=== PATIENT | female | born 1985 ===

== ENCOUNTER 2019-01-26 19:46 | Inpatient (IN) | payer OTHER ==
[2019-01-26] MEDS ORDERED: BRETHINE SUB-Q PRN (21:29)
[2019-01-26] MEDS ORDERED: STADOL IV PRN (21:29)
[2019-01-26] MEDS ORDERED: BRETHINE IVP PRN (21:29)
[2019-01-26] MEDS ORDERED: SUBLIMAZE IV PRN (21:29)
[2019-01-26] MEDS ORDERED: XYLOCAINE 2% INFILTRATI ONE (21:29)
[2019-01-26] MEDS ORDERED: MINERAL OIL PO PRN (21:29)
[2019-01-26] MEDS ORDERED: AMPICILLIN/NS 2 GM/100 ML 2 GM/100 ML BAG IV ONE (21:29)
[2019-01-26] MEDS ORDERED: LACTATED RINGERS 1,000 ML ONE (21:31)
[2019-01-26] MEDS ORDERED: PITOCin/NS 20 UNIT/1000ML DRIP 20 UNITS/1,000 ML BAG IV SCH (22:00)
[2019-01-26] MEDS ORDERED: LACTATED RINGERS 1,000 ML IV SCH (22:00)
--- NOTE | 2019-01-26 22:06 | History and Physical Report ---
History of Present Illness Date of examination: 01/26/19 Date of admission: 01/26/2019 Chief complaint: leakage of fluid History of present illness: 33y/o @ 38+6 weeks presents with gross rupture of membranes of clear fluid. The patient is transfer of care @ 31 weeks from [place]. course complicated by +GBS otherwise uncomplicated. Past History Past Medical History: no pertinent history Past Surgical History: no surgical history Social history: - Obstetrical History Expected Date of Delivery: 02/03/19 Actual Gestation: 38 Week(s) 6 Day(s) : 1 Para: 0 Hx # Term Pregnancies: 0 Number of Pregnancies: 0 Spontaneous Abortions: 0 Induced : 0 Number of Living Children: 0 Medications and Allergies Allergies Allergy/AdvReac Type Severity Reaction Status Date / Time No Known Allergies Allergy Verified 01/26/19 20:23 Home Medications Medication Instructions Recorded Confirmed Last Taken Type Vit-Fe Fumar-FA [ 1 tab PO DAILY 01/26/19 01/26/19 01/26/19 History Vitamin] Active Meds: Active Medications Butorphanol Tartrate (Stadol) 2 mg IV Q2H PRN PRN Reason: Pain , Severe (7-10) Ephedrine Sulfate (Ephedrine Sulfate) 10 mg IV Q2M PRN PRN Reason: Hypotension Fentanyl (Sublimaze) 100 mcg IV Q2H PRN PRN Reason: Labor Pain Oxytocin/Sodium Chloride (Pitocin/Ns 20 Unit/1000ml Drip) 20 units in 1,000 mls @ 125 mls/hr IV DIRECT BETSEY Lactated Ringer's (Lactated Ringers) 1,000 mls @ 125 mls/hr IV DIRECT BETSEY Last Admin: 01/26/19 21:46 Dose: 125 mls/hr Documented by: Ampicillin Sodium (Ampicillin/Ns 2 Gm/100 Ml) 2 gm in 100 mls @ 100 mls/hr IV ONCE ONE; Protocol Stop: 01/26/19 22:28 Ampicillin Sodium (Ampicillin/Ns 1 Gm/50 Ml) 1 gm in 50 mls @ 100 mls/hr IV Q4HR BETSEY; Protocol Mineral Oil (Mineral Oil) 30 ml PO QHS PRN PRN Reason: Constipation Terbutaline Sulfate (Brethine) 0.25 mg SUB-Q ONCE PRN PRN Reason: Hyperstimulation/Hypertonicity Terbutaline Sulfate (Brethine) 0.25 mg IVP ONCE PRN PRN Reason: Hyperstimulation/Hypertonicity Review of Systems All systems: negative Genitourinary: leakage of fluid - Vital Signs Vital signs: Vital Signs Pulse BP 74 117/63 01/26/19 20:02 01/26/19 20:02 Temp Pulse Resp BP Pulse Ox 98.9 F 68 18 115/69 01/26/19 20:13 01/26/19 21:33 01/26/19 20:13 01/26/19 21:33 - Physical Exam Breasts: Positive: deferred Cardiovascular: Regular rate Lungs: Positive: Clear to auscultation Abdomen: Positive: normal appearance - Obstetrical Cervical Dilatation: 1 Results Result Diagrams: 01/26/19 21:39 All other labs normal. Assessment and Plan - Patient Problems (1) Spontaneous rupture of membranes Current Visit: Yes Status: Acute Plan to address problem: admit for augmentation and IV antibiotics
[2019-01-26 22:25] LABS: Hemoglobin 12.8 gm/dl (10.1-14.3); Red Blood Count 3.82 M/mm3 (3.65-5.03)
[2019-01-26 22:26] LABS: Hematocrit 37.4 % (30.3-42.9); Mean Corpuscular HGB Conc 34 % (30-34); Mean Corpuscular Volume 98 fl (79-97); Platelet Count 167 K/mm3 (140-440); Red Cell Distribution Width 13.5 % (13.2-15.2)
[2019-01-26] MEDS ORDERED: PITOCin/NS 30 UNIT/500ML 30,000 MILLIUNITS/500 ML BAG IV ONE (22:40)
[2019-01-27] MEDS: AMPICILLIN/NS 1 GM/50 ML 1 GM/50 ML BAG IV SCH ×2 (01:33→06:00)
--- NOTE | 2019-01-27 08:47 | Anesthesia Consultation ---
Anesthesia Consult and Med Hx Date of service: 01/27/19 - Airway Anesthetic Teeth Evaluation: Good ROM Head & Neck: Adequate Mental/Hyoid Distance: Adequate Mallampati Class: Class II Intubation Access Assessment: Probably Good - Pulmonary Exam CTA: Yes - Cardiac Exam Cardiac Exam: RRR - Pre-Operative Health Status ASA Pre-Surgery Classification: ASA2 Proposed Anesthetic Plan: Epidural - Pulmonary Hx Smoking: No Hx Asthma: No Hx Respiratory Symptoms: No SOB: No COPD: No Home Oxygen Therapy: No Hx Pneumonia: No Hx Sleep Apnea: No - Cardiovascular System Hx Hypertension: No Hx Coronary Artery Disease: No Hx Heart Attack/AMI: No Hx Angina: No Hx Percutaneous Transluminal Coronary Angioplasty (PTCA): No Hx Cardia Arrhythmia: No Hx Pacemaker: No Hx Internal Defibrillator: No Hx Valvular Heart Disease: No Hx Heart Murmur: No Hx Peripheral Vascular Disease: No - Central Nervous System Hx Neuromuscular Disorder: No Hx Seizures: No CVA: No Hx Back Pain: No Hx Psychiatric Problems: No - Gastrointestinal Hx Ulcer: No Hx Gastroesophageal Reflux Disease: Yes - Endocrine Hx Renal Disease: No Hx End Stage Renal Disease: No Hx Cirrhosis: No Hx Liver Disease: No Hx Insulin Dependent Diabetes: No Hx Non-Insulin Dependent Diabetes: No Hx Thyroid Disease: No Hx Hypothyroidism: No Hx Hyperthyroidism: No - Hematic Hx Anemia: No Hx Sickle Cell Disease: No - Other Systems Hx Alcohol Use: No Hx Substance Use: No Hx Cancer: No Hx Obesity: No
[2019-01-27] MEDS ORDERED: NARCAN 2 MG/2 ML IV PRN (09:00)
[2019-01-27] MEDS ORDERED: fentaNYL-BUPIV 2 MCG/ML-0.125% 200 MCG/100 ML BAG EPIDURAL SCH (09:30)
[2019-01-27] MEDS ORDERED: MARCAINE 0.25% INFILTRATI ONE (10:19)
--- NOTE | 2019-01-27 10:32 | Event Note ---
Date: 01/27/19 Called by pt's RN secondary to repetitive deep variable decelerations with each contraction. Pt examined and found to be /0. Pt had prior attempt at pushing that was unsuccessful. Plan to proceed with delivery.
[2019-01-27] MEDS ORDERED: DIPRIVAN 10 MG/ML IV ONE (10:35)
[2019-01-27] MEDS ORDERED: NACL 0.9% IR ONE (10:39)
[2019-01-27] MEDS ORDERED: WATER FOR IRRIG STERILE IR ONE (10:39)
[2019-01-27] MEDS ORDERED: ceFAZolin 2 GM in NACL 0.9% 100 ML IV ONE (10:44)
[2019-01-27] MEDS ORDERED: ANCEF/STERILE WATER 2 GM/20 ML 2 GM/20 ML SYRINGE IV ONE ×2 (10:44→10:50)
[2019-01-27] MEDS ORDERED: ZOFRAN ONE (10:55)
[2019-01-27] MEDS ORDERED: REGLAN IV NR (11:00)
[2019-01-27] MEDS ORDERED: PEPCID IV NR (11:00)
[2019-01-27] MEDS ORDERED: BICITRA PO NR (11:00)
[2019-01-27] MEDS ORDERED: PITOCin/NS 20 UNIT/1000ML DRIP 20 UNITS/1,000 ML BAG IV SCH ×2 (11:00→14:30)
[2019-01-27] MEDS ORDERED: LACTATED RINGERS 1,000 ML IV SCH (11:00)
--- NOTE | 2019-01-27 12:04 | Anesthesia Day of Surgery ---
Anesthesia Day of Surgery - Day of Surgery Patient Examined: Yes Patient H&P Reviewed: Yes Patient is NPO: Yes Beta Blockers: No Cardiac Clearance: No Pulmonary Clearance: No Tutu's Test: N/A
[2019-01-27] MEDS ORDERED: ZOFRAN IV PRN ×2 (12:05→14:30)
[2019-01-27] MEDS ORDERED: BENADRYL IV PRN (12:05)
[2019-01-27] MEDS ORDERED: DILAUDID IV PRN (12:05)
[2019-01-27] MEDS ORDERED: NARCAN 0.4 MG/1 ML IV PRN ×2 (12:05→14:30)
--- NOTE | 2019-01-27 12:05 | Post Anesthesia Evaluation ---
- Post Anesthesia Evaluation Patient Participated: Yes Airway Patent: Yes Stable Respiratory Function: Yes Nausea/Vomiting: No Temp > 96.8F: Yes Pain Manageable: Yes Adequeate Hydration: Yes Anesthesia Complications: No Block Receding Appropriately: Yes Patient on Ventilator: No
--- NOTE | 2019-01-27 12:09 | Operative Report ---
Operative Report Operative Report: Date of procedure: January Preoperative diagnosis: 1) IUP at 39w0d 2)SROM 3) Nonreassuring heart t ones Postoperative diagnosis: Same Procedure:Primary low transverse section Surgeon: Salma Wang M.D. Anesthesia: Regional Findings: 1) Viable female , Apgars 8 and 9, weight 2845g, (6 lb 4 oz) in cephalic presentation. Tight nuchal cord x 1 2) Normal-appearing uterus ovaries and tubes Estimated blood loss: 500 mL IV fluids:1200 mL Urine output: 300 mL, clear at the end of the procedure Drains: Rausch to gravity Specimens: Placenta Complications:None.Counts correct x 3 Disposition: Stable to PACU Indication for procedure: Pt is a 33 year old [place] female primigravida at 39w0 who was admitted with rupture of membranes.She progressed to 9 cm but began to have repetitive deep variable decelerations with each contraction without any further descent of the fetus. The decision was to proceed with delivery. Operation in detail: After the risks, benefits, alternatives and complications were explained to the patient she gave informed consent for the procedure. She was subsequently taken to the operating room where regional anesthesia was noted to be adequate. She was subsequently placed in the dorsal supine position with leftward tilt and prepped and draped in a normal sterile fashion. heart tones were noted to be in the 180s prior to incision. A timeout was performed. A Pfannenstiel skin incision was made with the knife and carried down to the layer of the fascia with the Bovie. The fascia was incised in the midline and the fascial incision was extended bilaterally with the Bovie. The fascial incision was then stretched. The rectus muscles were then in the midline. The peritoneum was then entered bluntly. The peritoneal incision was extended with good visualization of the bladder. The peritoneal incision was then stretched. The bladder blade was placed. The vesicouterine peritoneum was grasped with smooth pickups and incised with Metzenbaum scissors. Metzenbaum scissors were used to extend the incision bilaterally. The bladder flap was then created digitally and the bladder blade was replaced. A transverse incision was made in the lower uterine segment with a knife and extended bilaterally with the bandage scissors. The head was delivered without difficulty followed by shoulders and body. Tight nuchal cord was reduced. was bulb suctioned at delivery. The cord was clamped and cut and the was handed to NICU staff in attendance. Cord blood was collected. The placenta was then delivered manually. The uterus was then cleared of all clots and debris. The hysterotomy was then reapproximated with 0 Vicryl in a running locked fashion. A second layer of the same suture was used in imbricating fashion. The hysterotomy was inspected and hemostasis was noted. The gutters were irrigated and cleared of all clots and debris. The hysterotomy was again inspected and noted to be hemostatic. Surgicel was placed over the hysterotomy. The peritoneum was reapproximated with 2-0 Vicryl in a running fashion incorporating the rectus muscles. The fascia was reapproximated with 0 Vicryl in a running fashion. Additional figure of eights of 0Vicryl were used on the right side of the incision for full reapproximation. The subcutaneous tissue was reapproximated with 3-0 Vicryl in a running fashion. The skin was reapproximated with 4-0 Vicryl in a subcuticular fashion. The incision was then covered with steri strips and a pressure dressing. The procedure was then ended. The patient tolerated the procedure well and was taken to the PACU in stable condition. All instrument, lap, and needle counts were correct 3.
--- NOTE | 2019-01-27 12:09 | Procedure Note ---
OB Delivery Note - Delivery Date of Delivery: 01/27/19 Surgeon: BUDDY TAYLOR Estimated blood loss: 500cc - Section Preop diagnosis: nonreassuring FHR tracing Postop diagnosis: same section procedure: section, primary low transverse Disposition: PACU Complications: none Narrative: Please see operative report - A at 1 minute: 8 at 5 minutes: 9 Infant Gender: Female (2845g (6lb 4oz) @ 1045 am)
[2019-01-27] MEDS ORDERED: SODIUM CHLORIDE FLUSH SYRINGE 10 ML IV NR (13:00)
[2019-01-27] MEDS ORDERED: TUCKS PAD TP PRN (14:30)
[2019-01-27] MEDS ORDERED: D5LR 1,000 ML IV SCH (14:30)
[2019-01-27] MEDS ORDERED: SODIUM CHLORIDE FLUSH SYRINGE 10 ML IV PRN (14:30)
[2019-01-27] MEDS ORDERED: TYLENOL PO PRN (14:30)
[2019-01-27] MEDS ORDERED: MYLICON PO PRN (14:30)
[2019-01-27] MEDS ORDERED: LANSINOH TP PRN (14:30)
[2019-01-27] MEDS: DILAUDID IV PRN ×2 (15:02→15:11)
[2019-01-27] MEDS: TORADOL IV SCH ×2 (15:05→21:44)
[2019-01-27] MEDS ORDERED: MILK OF MAGNESIA PO PRN (22:00)
[2019-01-27] MEDS: PERCOCET 5/325 PO PRN (22:04)
[2019-01-27] MEDS: ANCEF/NS 1 GM/50 ML 1 GM/50 ML BAG IV SCH (22:15)
[2019-01-28 01:37] LABS: Hematocrit 30.4 % (30.3-42.9); Hemoglobin 10.7 gm/dl (10.1-14.3)
[2019-01-28] MEDS: TORADOL IV SCH ×2 (03:23→10:00)
[2019-01-28] MEDS: PERCOCET 5/325 PO PRN ×3 (03:24→15:51)
[2019-01-28] MEDS ORDERED: BOOSTRIX IM ONE (06:00)
--- NOTE | 2019-01-28 08:10 | Progress Note ---
Assessment and Plan A: POD#1 s/p primary section at term doing well P: Routine postoperative care Subjective - Subjective Date of service: 01/28/19 Principal diagnosis: s/p primary at term Interval history: No issues overnight Patient reports: appetite normal, voiding normally, pain well controlled, ambulating normally, no flatus, no bowel movement : doing well Objective - Vital Signs Latest vital signs: Vital Signs Temp Pulse Resp BP BP BP Pulse Ox 01/28/19 00:00 98.7 F 72 18 97/60 96 01/27/19 20:02 98.4 F 73 18 105/62 97 01/27/19 16:20 98.8 F 70 70 H 105/59 01/27/19 14:06 97.9 F 87 100 H 99/63 01/27/19 13:00 97.8 F 100 H 17 107/66 100 01/27/19 12:45 104 H 18 104/65 100 01/27/19 12:30 66 18 102/56 100 01/27/19 12:15 76 16 97/53 100 01/27/19 12:00 72 14 99/57 100 01/27/19 11:55 71 19 97/55 100 01/27/19 11:50 97.5 F L 88 19 101/57 100 01/27/19 10:27 93 H 129/69 01/27/19 10:21 117 H 100 01/27/19 10:17 89 119/64 01/27/19 10:16 95 H 100 01/27/19 10:11 81 109/64 98 01/27/19 10:06 80 99 01/27/19 10:01 76 97 01/27/19 09:58 73 105/62 01/27/19 09:56 77 100 01/27/19 09:51 81 100 01/27/19 09:46 85 99 01/27/19 09:42 78 103/50 01/27/19 09:41 74 99 01/27/19 09:36 76 100 01/27/19 09:31 91 H 100 01/27/19 09:27 75 102/55 01/27/19 09:26 76 99 01/27/19 09:21 83 99 01/27/19 09:16 86 99 01/27/19 09:11 75 102/57 100 01/27/19 09:06 76 100 08/07/19 09:01 86 99 01/27/19 08:56 73 99/56 100 01/27/19 08:53 75 94/50 01/27/19 08:51 71 100 01/27/19 08:46 79 103/52 01/27/19 08:43 77 96/48 01/27/19 08:42 77 98/50 01/27/19 08:41 83 123/74 01/27/19 08:39 89 131/61 01/27/19 08:36 75 92/51 01/27/19 08:35 79 94 01/27/19 08:34 103 H 98/56 01/27/19 08:32 97 H 104/53 01/27/19 08:31 95 H 97 01/27/19 08:29 88 116/51 01/27/19 08:26 94 H 97 01/27/19 08:25 72 110/54 01/27/19 08:24 97 H 113/55 01/27/19 08:23 86 113/56 01/27/19 08:21 109 H 97 01/27/19 08:20 87 125/57 01/27/19 08:17 81 137/62 01/27/19 08:16 84 98 Intake and Output 01/27/19 01/28/19 01/28/19 22:59 06:59 14:59 Intake Total 600 180 Output Total 1300 1400 Balance -700 -1220 Intake: Oral 360 Intake, Free Water 240 180 Output: Urine 1300 1400 Indwelling Catheter 1300 700 Void 700 Other: Total, Intake Amount 120 Total, Output Amount 300 700 - Exam Breasts: Present: deferred Cardiovascular: Present: Regular rate Lungs: Present: Clear to auscultation Abdomen: Present: soft, normal bowel sounds. Absent: distention Uterus: Present: fundal height at umbilicus Extremities: Present: normal Incision: Present: dressed
[2019-01-28] MEDS: FEOSOL PO SCH (09:59)
[2019-01-28] MEDS ORDERED: M-M-R II VACCINE SUB-Q ONE (11:00)
[2019-01-28] MEDS: IBUPROFEN PO PRN (15:51)
[2019-01-28] MEDS: ANCEF/NS 1 GM/50 ML 1 GM/50 ML BAG IV SCH (17:40)
[2019-01-29] MEDS: PERCOCET 5/325 PO PRN ×2 (06:40→22:23)
--- NOTE | 2019-01-29 08:35 | Progress Note ---
Assessment and Plan - Patient Problems (1) Spontaneous rupture of membranes Current Visit: Yes Status: Acute Plan to address problem: routine postop care will discharge home tomorrow if remains stable Subjective - Subjective Date of service: 01/29/19 Principal diagnosis: s/p primary at term Interval history: Patient complains of slight dizziness after shower. Pain is better controlled. Tolerating diet Patient reports: appetite normal, voiding normally, pain well controlled Objective - Vital Signs Latest vital signs: Vital Signs Temp Pulse Resp BP Pulse Ox 01/28/19 23:58 98.3 F 77 18 110/63 97 01/28/19 15:43 98.3 F 73 18 98/58 95 Intake and Output 01/28/19 01/29/19 01/29/19 22:59 06:59 14:59 Intake Total 360 Output Total 750 Balance -750 360 Intake: Intake, Free Water 360 Output: Urine 750 Void 750 Other: Total, Output Amount 400 # Voids Void 3 2 - Exam Abdomen: Present: normal appearance, soft Incision: Present: normal, dry
--- NOTE | 2019-01-29 08:40 | Discharge Summary ---
Providers - Providers Date of Admission: 01/26/19 22:18 Date of discharge: 01/30/19 Attending physician: DEMARCUS KINGSLEY Primary care physician: DEMARCUS KINGSLEY Hospitalization Reason for admission: rupture of membranes Delivery: Procedure: section, primary low transverse Discharge diagnosis: IUP at term delivered Hospital course: Patient with +SROM. Labor complicated by non-reassuring tracing. Patient taken for primary . Postop uncomplicated. Condition at discharge: Good Disposition: DC-01 TO HOME OR SELFCARE - Discharge Diagnoses (1) Spontaneous rupture of membranes Status: Acute Plan - Discharge Medications Prescriptions: Ibuprofen [Motrin] 800 mg PO Q8HR PRN #30 tablet PRN Reason: Pain, Moderate (4-6) oxyCODONE /ACETAMINOPHEN [Percocet 5/325] 1 tab PO Q6HR PRN #40 tablet PRN Reason: Pain - Provider Discharge Summary Activity: no sex for 6 weeks, no heavy lifting 4 weeks, no strenuous exercise Diet: routine Instructions: routine Additional instructions: [] Smoking cessation referral if applicable(refer to patient education folder for contact #) [] Refer to [facility]'s [facility] Booklet Call your doctor immediately for: * Fever > 100.5 * Heavy vaginal bleeding ( >1 pad per hour) * Severe persistent headache * Shortness of breath * Reddened, hot, painful area to leg or breast * Drainage or odor from incision. * Keep incision clean and dry at all times and follow doctor's instructions regarding bathing/showering schedule postop check in 2 weeks - Follow up plan Follow up: DEMARCUS KINGSLEY MD [Primary Care Provider] - 7 Days Forms: [facility] Discharge Summary
[2019-01-29] MEDS: FEOSOL PO SCH (09:25)
[2019-01-29] MEDS: IBUPROFEN PO PRN ×2 (09:26→18:54)
[2019-01-30] MEDS: FEOSOL PO SCH (10:00)
[2019-01-30] MEDS: IBUPROFEN PO PRN (10:00)
[2019-01-30 14:53] VITALS: BP 112/75
== END 2019-01-30 14:30 | disposition home or self-care (01) | DRG 788 ==
LOC: TRG 19:46 → LD 22:18 → OBSVTOIN 22:18 → OB 01-27 13:45
PROVIDERS: ADMIT Obstetrics & Gynecology; ATTEND Obstetrics & Gynecology
PROC: 10D00Z1 Extraction of Products of Conception, Low, Open Approach (ICD-10-PCS; principal; 2019-01-27)
PROC: 3E0234Z Introduction of Serum, Toxoid and Vaccine into Muscle, Percutaneous Approach (ICD-10-PCS; 2019-01-28)
DX: O99.824 Streptococcus B carrier state complicating childbirth (principal); Z3A.38 38 weeks gestation of pregnancy; Z37.0 Single live birth; K21.9 Gastro-esophageal reflux disease without esophagitis; O76 Abnormality in fetal heart rate and rhythm complicating labor and delivery; O99.62 Diseases of the digestive system complicating childbirth; O69.1XX0 Labor and delivery complicated by cord around neck, with compression, not applicable or unspecified; Z23 Encounter for immunization
CPT/HCPCS: 36415; 85014; 85018; 85027; 86592; 86850; 86900; 86901; 88307; G0378; J0290; J0595; J0690; J1170; J1885; J2405; J2590; J2704; J7120; J7121